=== PATIENT | male | born 1995 | race African-American/Black ===

== ENCOUNTER 2022-04-03 19:41 | Emergency (ER) | payer SELFPAY ==
[2022-04-03 19:43] VITALS: BP 145/89; PULSE 79; RESP 14; TEMP 37.5; O2SAT 100
--- NOTE | 2022-04-03 20:52 | ED.MALEGU ---
HPI - Male Genitourinary General Chief complaint: Urogenital-Male Stated complaint: std check and treatment Time Seen by Provider: 04/03/22 20:06 History of Present Illness HPI Narrative: 26-year-old male presents emergency room for evaluation of exposure to STIs. Patient states he may have been exposed to herpes 10 days ago. Reports being asymptomatic. Patient is also requesting to be tested for all STIs at this time. Denies dysuria or testicular pain. Denies penile discharge. Related Data Allergies Allergy/AdvReac Type Severity Reaction Status Date / Time No Known Allergies Allergy Verified 04/03/22 20:49 Review of Systems Review of Systems: CONSTITUTIONAL: Denies fever, chills, or sweats. EYES: Denies visual changes, redness, or discharge. ENT: Denies rhinorrhea, congestion, sore throat, or otalgia. CARDIOVASCULAR: Denies chest pain, palpitations, or edema. RESPIRATORY: Denies cough or dyspnea. GASTROINTESTINAL: Denies abdominal pain, nausea, vomiting, or diarrhea. GENITOURINARY: Denies dysuria or hematuria. SKIN: Denies rash or itching. MUSCULOSKELETAL: Denies back pain, joint pain, or myalgia. NEUROLOGIC: Denies headache, numbness, dizziness, or weakness. PSYCHIATRIC: Denies anxiety or depression. Exam Narrative: GENERAL: Well-appearing, well-nourished, no physical limitations, and in no acute distress. HEAD: Normocephalic, atraumatic. EYES: Conjunctivae normal, PERRLA and EOMI. CHEST: Clear to auscultation. No respiratory distress. No wheezes rales or rhonchi. HEART: Regular rate and rhythm. No murmur heard. Normal peripheral pulses. ABDOMEN: Soft, nontender, nondistended, normal active bowel sounds. : Normal external male BACK: No CVA tenderness EXTREMITIES: Normal range of motion. No edema. No clubbing or cyanosis SKIN: Warm, dry, no rash. No noted wounds NEURO: No focal deficits. Alert and oriented x3. MAEW. CN's II-XI intact bilaterally, normal gait PSYCH: Cooperative. Normal mood and affect. Course Vital Signs Vital signs: Vital Signs Temperature 37.5 C 04/03/22 19:43 Pulse Rate 79 04/03/22 19:43 Respiratory Rate 14 04/03/22 19:43 Blood Pressure 145/89 H 04/03/22 19:43 Pulse Oximetry 100 04/03/22 19:43 Oxygen Delivery Room Air 04/03/22 19:43 Temperature 37.5 C 04/03/22 19:43 Pulse Rate 79 04/03/22 19:43 Respiratory Rate 14 04/03/22 19:43 Blood Pressure 145/89 H 04/03/22 19:43 Pulse Oximetry 100 04/03/22 19:43 Oxygen Delivery Room Air 04/03/22 19:43 Discharge Plan Discharge Clinical Impression: High risk sexual behavior Patient Disposition: Home, Self-Care Condition: Stable Instructions: Antibiotic Form, Chlamydia (ED), Gonorrhea (ED), Trichomoniasis (ED) Prescriptions: New doxycycline monohydrate 100 mg capsule 100 mg PO DAILY 10 Days Qty: 10 0RF Follow-up/Referrals: PHYSICIAN NOT ON STAFF,NONSTAFF [Primary Care Provider] - Time of Disposition: 20:53
--- NOTE | 2022-04-03 21:36 | PC.NURSE ---
in room with pt for an extensive amount of time answering his questions. Pt also talking to his mom on the phone and decided not to get any testing or take any meds at this time. Pt reports he does not have any s/s of STIs. Pt reports he will return to the ED if he becomes symptomatic. ERP notified of pt's choices and pt signed AMA paperwork.
== END 2022-04-03 21:39 | disposition home or self-care (01) ==
PROVIDERS: Emergency Provider Nurse Practitioner Family
DX: Z72.51 High risk heterosexual behavior (principal)
CPT/HCPCS: 99283; A9270; J0696